=== PATIENT | male | born 1955 | race Caucasian/White ===

== ENCOUNTER → 2016-05-05 | Outpatient (REF) | payer OTHER ==
[2016-05-05 10:31] LABS: BASOPHILS % (AUTO) 1 % (0-2); EOSINOPHILS # (AUTO) 0.1 10^3uL; EOSINOPHILS % (AUTO) 1 % (0-4); LYMPHOCYTES # (AUTO) 1.6 X10^3; MEAN CORPUSCULAR HEMOGLOBIN 30.7 PG (26.0-34.0); MEAN CORPUSCULAR HGB CONC 35.3 g/dL (31.0-37.0); MEAN CORPUSCULAR VOLUME 87 FL (80-100); MEAN PLATELET VOLUME 10.5 FL (6.0-9.5); MONOCYTES # (AUTO) 0.5 X10^3; MONOCYTES % (AUTO) 9 % (3-11); NEUTROPHILS % (AUTO) 65 % (51-67); PLATELET COUNT 175 10^3uL (150-450); WHITE BLOOD COUNT 6.18 10^3uL (4.0-11.0)
[2016-05-05 10:32] LABS: BILIRUBIN,URINE Negative (Negative); CLARITY,URINE Clear; COLOR,URINE Yellow; GLUCOSE, URINE (UA) Negative (Negative); LEUKOCYTE ESTERASE ,URINE Negative (Negative); PH,URINE 5.5 (5.0 - 8.0); UROBILINOGEN,URINE 0.2 mg/dL (0.2-1.0)
[2016-05-05 10:39] LABS: ALBUMIN 4.5 g/dL (3.4-5.0); ANION GAP 17.7 MEQ/L (3-15); CALCULATED IONIZED CALCIUM 4.1 mg/dL (3.8-4.6); TOTAL PROTEIN 7.9 g/dL (6.4-8.5)
[2016-05-05 10:40] LABS: URINE CENTRIFUGED VOLUME 12 mL
== END ==
LOC: LAB 10:01
PROVIDERS: ATTEND Family Medicine
DX: E11.9 Type 2 diabetes mellitus without complications (principal); C61 Malignant neoplasm of prostate; E78.4 Other hyperlipidemia
CPT/HCPCS: 80053; 80061; 81003; 81015; 84153; 84443; 85025

== ENCOUNTER → 2016-05-08 | Outpatient (CLI) | payer OTHER | LOC: RAD 07:12 | PROVIDERS: ATTEND Family Medicine | DX: C61 Malignant neoplasm of prostate (principal); R97.20 Elevated prostate specific antigen [PSA]; Z98.890 Other specified postprocedural states | CPT/HCPCS: 74176; 78306; A9503 ==